=== PATIENT | male | born 1950 | race African-American/Black ===

== ENCOUNTER → 2017-03-15 | Outpatient (CLI) | payer MEDICARE ==
[~2017-03-15] MED LIST: ALLO300 PO; AMLO10 PO; ATOR20TA42 PO; CLON-352 PO; COLC1TAB7 PO; HYDR25TA35 PO; KLOR20TA6 PO; LABE200T2 PO; LANTUSP SQ; LISI-366 PO; RIVA15 PO; TERA1 PO; [UNRECOGNIZED DRUG - CODE] PO
[2017-03-15 10:52] LABS: AUTOMATED NEUTROPHIL # 3.9 TH/MM3 (1.8-7.7); BASOPHIL # 0.1 TH/MM3 (0-0.2); BASOPHIL % 1.2 % (0.0-2.0); EOSINOPHIL # 0.3 TH/MM3 (0-0.4); EOSINOPHIL % 3.9 % (0.0-4.0); HEMO FLAGS DIFF FINAL; LYMPH % 28.9 % (9.0-44.0); MEAN CELL VOLUME 81.8 FL (80.0-100.0); MEAN CORPUSCULAR HEMOGLOBIN 27.5 PG (27.0-34.0); MEAN CORPUSCULAR HGB CONC 33.6 % (32.0-36.0); MONO % 7.7 % (0.0-8.0); NEUT % 58.3 % (16.0-70.0); PLATELET COUNT 255 TH/MM3 (150-450); RED BLOOD COUNT 4.64 MIL/MM3 (4.50-5.90); RED CELL DISTRIBUTION WIDTH 13.6 % (11.6-17.2); WHITE BLOOD COUNT 6.8 TH/MM3 (4.0-11.0)
[2017-03-15 11:11] LABS: MICRO ALBUMIN RANDOM URINE RAW 77.4 MG/L (0.0-30.0)
[2017-03-15 11:28] LABS: ANION GAP 10 MEQ/L (5-15); BICARBONATE 28.9 MEQ/L (21.0-32.0); BLOOD UREA NITROGEN 20 MG/DL (7-18); CHLORIDE 97 MEQ/L (98-107); GLOMERULAR FILTRATION RATE 63 ML/MIN (>89); GLUCOSE,FASTING 231 MG/DL (74-99); POTASSIUM 3.5 MEQ/L (3.5-5.1); SODIUM (NA) 136 MEQ/L (136-145)
[2017-03-15 11:29] LABS: AST (GOT) 18 U/L (15-37); URIC ACID 6.5 MG/DL (2.6-7.2)
[2017-03-15 11:39] LABS: ALKALINE PHOSPHATASE 105 U/L (45-117); ALT (GPT) 24 U/L (12-78); HDL CHOLESTEROL 52.5 MG/DL (40.0-60.0); LDL CHOLESTEROL 73 MG/DL (0-99); TOTAL BILIRUBIN ADULT 0.5 MG/DL (0.2-1.0)
[2017-03-15 17:10] LABS: HEMOGLOBIN A1b 0.7 %; HEMOGLOBIN Ao 54.7 %; HEMOGLOBIN F 1.3 %; HEMOGLOBIN LA1C 1.9 %; HEMOGLOBIN P3 3.5 %
== END ==
LOC: CLAB 10:26
PROVIDERS: ATTEND General Practice
DX: E10.65 Type 1 diabetes mellitus with hyperglycemia (principal); I10 Essential (primary) hypertension; M10.00 Idiopathic gout, unspecified site
CPT/HCPCS: 36415; 80053; 80061; 82043; 83036; 84443; 84550; 85025

== ENCOUNTER → 2017-10-02 | Outpatient (CLI) | payer MEDICARE ==
[2017-10-02 09:57] LABS: BILIRUBIN, URINE NEG (NEG); BLOOD, URINE NEG (NEG); GLUCOSE,URINE 1000 mg/dL (NEG); HYALINE CAST, URINE 1 /lpf (RARE); KETONE, URINE NEG (NEG); NITRITE,URINE NEG (NEG); PH, URINE 5.5 (5.0-8.5); URINE COLOR YELLOW (YELLW/STRAW); URINE LEUKOCYTE ESTERASE NEG (NEG)
[2017-10-02 10:08] LABS: HEMOGLOBIN A1C 10.1 % (4.3-6.0)
[2017-10-02 10:14] LABS: ALBUMIN 3.8 GM/DL (3.4-5.0); AST (GOT) 15 U/L (15-37); BLOOD UREA NITROGEN 21 MG/DL (7-18); CALCIUM 8.9 MG/DL (8.5-10.1); CHLORIDE 100 MEQ/L (98-107); CREATININE 1.53 MG/DL (0.60-1.30); GLOMERULAR FILTRATION RATE 55 ML/MIN (>89); GLUCOSE,FASTING 308 MG/DL (74-99); SODIUM (NA) 136 MEQ/L (136-145)
[2017-10-02 10:15] LABS: ALT (GPT) 20 U/L (12-78)
[2017-10-02 10:17] LABS: ALKALINE PHOSPHATASE 133 U/L (45-117); TOTAL BILIRUBIN ADULT 0.5 MG/DL (0.2-1.0)
== END ==
LOC: CLAB 09:24
PROVIDERS: ATTEND General Practice
DX: E10.65 Type 1 diabetes mellitus with hyperglycemia (principal); E87.6 Hypokalemia
CPT/HCPCS: 36415; 80053; 81001; 82043; 83036